=== PATIENT | male | born 1935 | race Caucasian/White ===

== ENCOUNTER 2016-07-03 12:12 | Observation (INO) | payer BC ==
[~2016-07-03] VITALS: Ht 162.6 cm; Wt 61.0 kg
[~2016-07-03 12:12] MED LIST: ASPI-664 PO; GABA100C PO; HYDR-3498 PO; LISI20TA11 PO
[2016-07-03 17:29] LABS: BASOPHILS % 0.3 % (0.0-2.0); EOSINOPHILS % 0.4 % (0.0-7.0); HEMATOCRIT 42.3 % (42.0-52.0); HEMOGLOBIN 14.5 g/dl (14.0-18.0); LYMPHOCYTES # 1.6 10^3/ul (0.8-2.9); LYMPHOCYTES % 22.9 % (15.0-51.0); MEAN CORPUSCULAR HEMOGLOBIN 32.1 pg (29.0-33.0); MEAN CORPUSCULAR HGB CONC 34.2 g/dl (32.0-37.0); MEAN CORPUSCULAR VOLUME 93.8 fl (82.0-101.0); MEAN PLATELET VOLUME 6.7 fl (7.4-10.4); MONOCYTE # 0.7 10^3/ul (0.3-0.9); MONOCYTES % 10.1 % (0.0-11.0); NEUTROPHIL # 4.7 10^3/ul (1.6-7.5); NEUTROPHILS % 66.3 % (39.0-77.0); PLATELET COUNT 318 10^3/UL (140-440); RED BLOOD COUNT 4.51 10^6/ul (4.70-6.10); RED CELL DISTRIBUTION WIDTH 12.6 % (11.5-14.5); UNCORRECTED WBC 7.1 10^3/ul (4.8-10.8); WHITE BLOOD COUNT 7.1 10^3/ul (4.8-10.8)
[2016-07-03 17:33] LABS: CONDITION 1
[2016-07-03 17:39] LABS: INR 0.92; PARTIAL THROMBOPLASTIN TIME 28.2 Sec (25.0-35.0); PROTIME 12.4 Sec (12.2-14.2)
[2016-07-03 17:42] LABS: ADD UMIC YES; CHLORIDE 83 mmol/L (97-110); URINE BILIRUBIN (Dip) NEGATIVE (NEGATIVE); URINE BLOOD (Dip) 1+ (NEGATIVE); URINE COLOR LT. YELLOW (YELLOW); URINE GLUCOSE (Dip) NEGATIVE (NEGATIVE); URINE KETONES (Dip) NEGATIVE (NEGATIVE); URINE LEUKOCYTE ESTERASE (Dip) NEGATIVE (NEGATIVE); URINE NITRITE (Dip) NEGATIVE (NEGATIVE); URINE TOTAL PROTEIN (Dip) NEGATIVE (NEGATIVE); URINE UROBILINOGEN (Dip) 0.2 E.U./dL (0.1-1.0)
[2016-07-03 17:43] LABS: POTASSIUM 3.4 mmol/L (3.5-5.1); SODIUM 122 mmol/L (135-144)
[2016-07-03 17:45] LABS: ANION GAP 14 (8-16); CARBON DIOXIDE 28 mmol/L (21-31); CREATININE 1.11 mg/dl (0.61-1.24)
[2016-07-03 17:46] LABS: ALANINE AMINOTRANSFERASE 25 IU/L (13-69); ALBUMIN/GLOBULIN RATIO 1.29; ALKALINE PHOSPHATASE 70 IU/L (42-121); ASPARTATE AMINO TRANSFERASE 23 IU/L (15-46); BILIRUBIN,INDIRECT 0.4 mg/dl (0-1.1); BILIRUBIN,TOTAL 0.4 mg/dl (0.2-1.3); BLOOD UREA NITROGEN 18 mg/dl (7-20); CALCIUM 8.8 mg/dl (8.4-10.2); GLUCOSE 128 mg/dl (70-220); TOTAL PROTEIN 7.1 g/dl (6.1-8.1)
[2016-07-03 17:57] LABS: URINE RBCS 0-2 /HPF (0)
[2016-07-03 18:14] LABS: TROPONIN-I < 0.012 ng/ml (0.00-0.12)
[2016-07-03] MEDS ORDERED: TRAM-40 PO (18:21)
[2016-07-03] MEDS ORDERED: RANI150T5 PO (18:21)
[2016-07-03] MEDS ORDERED: LORA10TA3 PO (18:22)
[2016-07-03] MEDS ORDERED: TEMA15CA PO (18:22)
[2016-07-03] MEDS ORDERED: LEVO50TA74 PO (18:22)
[2016-07-03] MEDS ORDERED: TAMS0.4C2 PO (18:23)
--- NOTE | 2016-07-03 18:35 | RADRPT ---
PROCEDURE: XR Chest AP portable CLINICAL INDICATION: Abdominal pain TECHNIQUE: An AP portable radiograph of the chest was submitted. COMPARISON: 07/11/2014 FINDINGS: Support Hardware: None Cardiovascular: The cardiovascular silhouette appears unremarkable, except for mild aortic tortuosit y. Lung Rivera: The lung rivera appear clear with no nodule, alveolar infiltrate, for a interstitial pr ominence evident. Pleural Spaces: No pneumothorax or pleural effusion is identified. Osseous Structures: The osseous structures appear intact. Soft Tissues: The soft tissues appear unremarkable. IMPRESSION: 1. Mild aortic tortuosity. 2. Otherwise, stable unremarkable portable chest. Physician Usama Date Time Electronically viewed and signed by Physician Usama on 07/03/2016 18:35 /
[2016-07-03] MEDS ORDERED: morphine 4 MG/ML VIAL IV STA (18:46)
[2016-07-03] MEDS ORDERED: ACETAMINOPHEN 325 MG TAB PO PRN (20:00)
[2016-07-03] MEDS ORDERED: ONDANSETRON 4 MG INJ IV PRN (20:00)
[2016-07-03 21:24] VITALS: PULSE 68
[2016-07-03 21:30] VITALS: Ht 162.6 cm; Wt 61.0 kg
[2016-07-03 21:52] VITALS: BP 147/78; PULSE 66; RESP 17
[2016-07-03 22:04] LABS: POTASSIUM,URINE RANDOM < 9.7 mmol/L (25-125)
[2016-07-04] VITALS (12 sets, daily range): BP systolic 99–165; BP diastolic 58–92; PULSE 64–123; RESP 16–20
[2016-07-04] MEDS ORDERED: ACETAMINOPHEN 325 MG TAB PO PRN
[2016-07-04] MEDS ORDERED: traMADol 50 MG TAB PO PRN (04:00)
[2016-07-04] MEDS: SOD CHLORIDE 0.9% 1,000 ML IV SCH ×2 (04:00→13:09)
[2016-07-04] MEDS ORDERED: ZOLPIDEM 5 MG TAB PO PRN (04:00)
[2016-07-04] MEDS ORDERED: hydrALAzine 20 MG INJ ONE (04:38)
[2016-07-04] MEDS ORDERED: hydrALAzine 20 MG INJ IV PRN (05:30)
[2016-07-04] MEDS ORDERED: hydrALAzine 20 MG INJ IV SCH (06:00)
[2016-07-04] MEDS: LISINOPRIL 20 MG TAB PO SCH (08:25)
[2016-07-04] MEDS: FAMOTIDINE 20 MG TAB PO SCH (08:25)
[2016-07-04] MEDS: LORATADINE 10 MG TAB PO SCH (08:25)
[2016-07-04] MEDS: HEPARIN 5,000 UNIT/0.5 ML SYG SC SCH (08:32)
[2016-07-04 10:18] LABS: BASOPHILS % 0.5 % (0.0-2.0); EOSINOPHILS % 0.4 % (0.0-7.0); HEMATOCRIT 43.3 % (42.0-52.0); HEMOGLOBIN 14.9 g/dl (14.0-18.0); LYMPHOCYTES # 1.6 10^3/ul (0.8-2.9); MEAN CORPUSCULAR HEMOGLOBIN 32.2 pg (29.0-33.0); MEAN CORPUSCULAR HGB CONC 34.5 g/dl (32.0-37.0); MEAN CORPUSCULAR VOLUME 93.5 fl (82.0-101.0); MONOCYTE # 0.8 10^3/ul (0.3-0.9); MONOCYTES % 14.7 % (0.0-11.0); NEUTROPHILS % 55.4 % (39.0-77.0); PLATELET COUNT 326 10^3/UL (140-440); RED BLOOD COUNT 4.63 10^6/ul (4.70-6.10); RED CELL DISTRIBUTION WIDTH 12.9 % (11.5-14.5); UNCORRECTED WBC 5.5 10^3/ul (4.8-10.8); WHITE BLOOD COUNT 5.5 10^3/ul (4.8-10.8)
[2016-07-04 10:24] LABS: CONDITION 1; POTASSIUM 3.8 mmol/L (3.5-5.1)
[2016-07-04 10:28] LABS: CALCIUM 8.9 mg/dl (8.4-10.2)
--- NOTE | 2016-07-04 11:35 | ERA ---
ER Documentation Chief Complaint Date/Time DATE: 07/04/16 TIME: 11:32 Chief Complaint SENT BY PMD FOR LOW SODIUM , ALSO C/O ABD PAIN HPI 80-year-old male with a history of hypertension and CKD presenting from his physician's office for a low sodium on his routine blood tests. Per patient he has chronic abdominal pain secondary to what they think is gastritis. That pain has not gotten any worse. However he has poor p.o. intake per his daughter. He denies any headache, confusion, dizziness, nausea, vomiting. No seizure-like activity recently. Urinating normally. No recent fevers, chills, abdominal pain, chest pain or shortness of breath. ROS All systems reviewed and are negative except as per history of present illness. Medications Home Meds Reported Medications Tamsulosin Hcl* (Tamsulosin Hcl*) 0.4 Mg Cap.er.24h, 0.4 MG PO DAILY, CAP 07/03/16 Loratadine* (Loratadine*) 10 Mg Tablet, 10 MG PO DAILY, #30 TAB 07/03/16 Levothyroxine Sodium* (Levothyroxine Sodium*) 50 Mcg Tablet, 50 MCG PO BEFORE BREAKFAST, #30 TAB 07/03/16 Temazepam* (Temazepam*) 15 Mg Capsule, 15 MG PO HS Y for INSOMNIA, CAP 07/03/16 Ranitidine Hcl* (Ranitidine Hcl*) 150 Mg Tablet, 150 MG PO Q12, #60 TAB 07/03/16 Tramadol Hcl* (Ultram*) 50 Mg Tablet, 50 MG PO DAILY Y for PAIN, TAB 07/03/16 Lisinopril* (Lisinopril*) 20 Mg Tablet, 20 MG PO DAILY, TAB 07/11/14 Discontinued Reported Medications Gabapentin* (Neurontin*) 100 Mg Capsule, 100 MG PO BID THEREAFTER, CAP 07/11/14 Discontinued Scripts Hydrocodone Bit-Acetaminophen* ([place]*) 5-325 Mg Tab, 1 TAB PO q6h for q6h, #20 TAB Prov:COMFORT DAVIS MD 07/12/14 Aspirin* (Aspirin* EC) 81 Mg Tablet.dr, 81 MG PO DAILY, #30 TAB Prov:COMFORT DAVIS MD 07/12/14 Allergies Allergies: Coded Allergies: No Known Drug Allergies (Verified Allergy, Unknown, 07/03/16) PMhx/Soc History of Surgery: Yes (CHOLESCYSTECTOMY) Anesthesia Reaction: No Hx Neurological Disorder: No Hx Respiratory Disorders: No Hx Cardiac Disorders: Yes (HTN) Hx Psychiatric Problems: No Hx Miscellaneous Medical Probl: Yes (ARTHRITIS BPH) Hx Alcohol Use: No Hx Substance Use: No Hx Tobacco Use: No Smoking Status: Never smoker FmHx Family History: No diabetes Physical Exam Vitals Vital Signs Date Time Temp Pulse Resp B/P Pulse Ox O2 Delivery O2 Flow Rate FiO2 07/03/16 18:46 66 16 134/74 99 Room Air 07/03/16 17:23 72 18 118/73 99 Room Air 07/03/16 12:17 98.5 82 18 126/70 97 Physical Exam Const: No apparent distress, laying comfortably in bed, nontoxic Head: Atraumatic Eyes: Normal Conjunctiva ENT: Normal External Ears, Nose and Mouth. Neck: Full range of motion. No meningismus. Resp: Clear to auscultation bilaterally Cardio: Regular rate and rhythm, no murmurs Abd: Soft, non tender, non distended. Normal bowel sounds Skin: No petechiae or rashes Back: No midline or flank tenderness Ext: No cyanosis, or edema Neur: Awake and alert and oriented 3, cranial nerves intact, strength and sensations intact in all 4 extremities Psych: Normal Mood and Affect Result Diagram: 07/04/16 0945 07/04/16 0945 Results 24 hrs Laboratory Tests Test 07/03/16 17:15 Activated Partial Thromboplast Time 28.2Sec Alanine Aminotransferase (ALT/SGPT) 25IU/L Albumin 4.0g/dl Albumin/Globulin Ratio 1.29 Alkaline Phosphatase 70IU/L Anion Gap 14 Aspartate Amino Transf (AST/SGOT) 23IU/L Basophils # 0.010^3/ul Basophils % 0.3% Blood Morphology Comment Blood Urea Nitrogen 18mg/dl Calcium Level 8.8mg/dl Carbon Dioxide Level 28mmol/L Chloride Level 83mmol/L Creatinine 1.11mg/dl Direct Bilirubin 0.00mg/dl Eosinophils # 0.010^3/ul Eosinophils % 0.4% Globulin 3.10g/dl Glucose Level 128mg/dl Hematocrit 42.3% Hemoglobin 14.5g/dl INR International Normalized Ratio 0.92 Indirect Bilirubin 0.4mg/dl Lipase 335U/L Lymphocytes # 1.610^3/ul Lymphocytes % 22.9% Mean Corpuscular Hemoglobin 32.1pg Mean Corpuscular Hemoglobin Concent 34.2g/dl Mean Corpuscular Volume 93.8fl Mean Platelet Volume 6.7fl Monocytes # 0.710^3/ul Monocytes % 10.1% Neutrophils # 4.710^3/ul Neutrophils % 66.3% Nucleated Red Blood Cells # 0.010^3/ul Nucleated Red Blood Cells % 0.0/100WBC Platelet Count 68641^3/UL Potassium Level 3.4mmol/L Prothrombin Time 12.4Sec Prothrombin Time Ratio 1.0 Red Blood Count 4.5110^6/ul Red Cell Distribution Width 12.6% Sodium Level 122mmol/L Total Bilirubin 0.4mg/dl Total Protein 7.1g/dl Troponin I < 0.012ng/ml Urine Bilirubin NEGATIVE Urine Clarity CLEAR Urine Color LT. YELLOW Urine Glucose NEGATIVE% Urine Hemoglobin 1+ Urine Ketones NEGATIVE Urine Leukocyte Esterase NEGATIVE Urine Microscopic RBC 0-2/HPF Urine Microscopic WBC NONE SEEN/HPF Urine Nitrite NEGATIVE Urine Random Potassium < 9.7mmol/L Urine Random Sodium < 13mmol/L Urine Specific [place] <=1.005 Urine Total Protein NEGATIVE Urine Urobilinogen 0.2 E.U./dL Urine pH 6.5 White Blood Count 7.110^3/ul Current Medications Medications (Trade) Dose Ordered Sig/Junaid Route PRN Reason Start Time Stop Time Status Last Admin Dose Admin Morphine Sulfate (morphine) 4 mg ONCE STAT IV 07/03/16 18:46 07/03/16 18:47 DC 07/03/16 18:54 Procedures/MDM EKG: Rate/Rhythm: Normal sinus rhythm with first-degree AV block QRS, ST, T-waves: No changes consistent w/ acute ischemia Impression: No evidence of ischemia or arrhythmia Patient is presenting with asymptomatic hyponatremia. I repeated his blood work and his sodium is even lower today at 122. He has no evidence of fluid overload so it is probably euvolemic versus hypovolemic hyponatremia. Urine electrolytes were ordered. Patient is hemodynamically stable. I will admit him for further workup. Accepting Care Team: Current data and ongoing care discussed at time of admission. Primary: Stacie Consulting: none Outstanding Data: none Departure Diagnosis: Primary Impression: Hyponatremia Condition: Serious EKMEKDEJONAN,NELLIE R. MD Jul 04, 2016 11:35
--- NOTE | 2016-07-04 14:24 | PN ---
Date/Time of Note Date/Time of Note DATE: 07/04/16 TIME: 14:20 Assessment/Plan VTE Prophylaxis VTE Prophylaxis Intervention: SCD's Lines/Catheters IV [facility]ter [facility]from [facility] Peripheral IV Assessment/Plan Chief Complaint/Hosp Course Assessment and plan 1. Hyponatremia. Improving at present. Continue on IV fluids. Patient's test lead application testing Dr. Nicolas notified. 2. Mild pancreatitis. Denies any abdominal pain at this time. We'll follow-up on lipase level. Continue IV hydration 3. BPH. Continue on Flomax 4. History of hypertension. We'll provide with antihypertensives for systolic greater than 160 Disposition and plan: Await for clinical improvement of hyponatremia. Draw Tender notified. Discharge when medically stable Discussed plan of care with Dr. Koroma Problems: Subjective 24 Hr Interval Summary Free Text/Dictation Comfortable at present. No apparent distress Exam/Review of Systems Vital Signs Vitals Vital Signs Date Time Temp Pulse Resp B/P Pulse Ox O2 Delivery O2 Flow Rate FiO2 07/04/16 12:26 106 07/04/16 12:18 98.9 18 158/92 99 07/03/16 21:52 Room Air Exam General: No acute signs or symptoms of distress Eyes: pupils equal round, Anicteric sclera Neck: Supple nontender, no JVD Cardiac: S1, S2 auscultated, regular rhythm and rate Pulmonary: No coarse rhonchi or breathing auscultated GI: Abdomen soft nontender nondistended, bowel sounds active Extremities: No edema bilateral lower extremities Skin: Clean dry and intact Neurologic: Alert to person place and time and situation Results Result Diagram: 07/04/16 0945 07/04/16 0945 Results 24 hrs Laboratory Tests Test 07/03/16 17:15 07/04/16 09:45 Activated Partial Thromboplast Time 28.2 Alanine Aminotransferase (ALT/SGPT) 25 Albumin 4.0 Albumin/Globulin Ratio 1.29 Alkaline Phosphatase 70 Anion Gap 14 15 Aspartate Amino Transf (AST/SGOT) 23 Basophils # 0.0 0.0 Basophils % 0.3 0.5 Blood Morphology Comment Blood Urea Nitrogen 18 19 Calcium Level 8.8 8.9 Carbon Dioxide Level 28 27 Chloride Level 83 L 91 L Creatinine 1.11 1.00 Direct Bilirubin 0.00 Eosinophils # 0.0 0.0 Eosinophils % 0.4 0.4 Globulin 3.10 Glucose Level 128 95 Hematocrit 42.3 43.3 Hemoglobin 14.5 14.9 INR International Normalized Ratio 0.92 Indirect Bilirubin 0.4 Lipase 335 H Lymphocytes # 1.6 1.6 Lymphocytes % 22.9 29.0 Mean Corpuscular Hemoglobin 32.1 32.2 Mean Corpuscular Hemoglobin Concent 34.2 34.5 Mean Corpuscular Volume 93.8 93.5 Mean Platelet Volume 6.7 L 7.0 L Monocytes # 0.7 0.8 Monocytes % 10.1 14.7 H Neutrophils # 4.7 3.0 Neutrophils % 66.3 55.4 Nucleated Red Blood Cells # 0.0 0.0 Nucleated Red Blood Cells % 0.0 0.0 Platelet Count 318 # 326 Potassium Level 3.4 L 3.8 Prothrombin Time 12.4 Prothrombin Time Ratio 1.0 Red Blood Count 4.51 L 4.63 L Red Cell Distribution Width 12.6 12.9 Sodium Level 122 L 129 L Total Bilirubin 0.4 Total Protein 7.1 Troponin I < 0.012 Urine Bilirubin NEGATIVE Urine Clarity CLEAR Urine Color LT. YELLOW Urine Glucose NEGATIVE Urine Hemoglobin 1+ H Urine Ketones NEGATIVE Urine Leukocyte Esterase NEGATIVE Urine Microscopic RBC 0-2 Urine Microscopic WBC NONE SEEN Urine Nitrite NEGATIVE Urine Random Potassium < 9.7 L Urine Random Sodium < 13 L Urine Specific [place] <=1.005 L Urine Total Protein NEGATIVE Urine Urobilinogen 0.2 E.U./dL Urine pH 6.5 White Blood Count 7.1 # 5.5 # Medications Medications Current Medications Acetaminophen (Tylenol Tab) 650 mg Q4H PRN PO PAIN AND OR ELEVATED TEMP; Start 07/04/16 at 00:00 Lisinopril (Zestril) 20 mg DAILY PO Last administered on 07/04/16 08:25; Admin Dose 20 MG; Start 07/04/16 at 09:00 Famotidine (Pepcid) 20 mg DAILY PO Last administered on 07/04/16 08:25; Admin Dose 20 MG; Start 07/04/16 at 09:00 Tramadol HCl (Ultram) 50 mg Q6H PRN PO pain; Start 07/04/16 at 04:00 Loratadine (Claritin) 10 mg DAILY PO Last administered on 07/04/16 08:25; Admin Dose 10 MG; Start 07/04/16 at 09:00 Tamsulosin HCl (Flomax) 0.4 mg HS PO ; Start 07/04/16 at 21:00 Heparin Sodium (Porcine) 5000 unit 5,000 unit DAILY SC Last administered on 07/04 08:32; Admin Dose 5,000 UNIT; Start 07/04/16 at 09:00 Sodium Chloride (NS) 1,000 ml @ 100 mls/hr Q10H IV Last administered on 13:09; Admin Dose 100 MLS/HR; Start 07/04/16 at 04:00 Hydralazine HCl (Apresoline) 10 mg Q6H PRN IV ELEVATED BLOOD PRESSURE Last administered on 07/04/16 05:48; Admin Dose 10 MG; Start 07/04/16 at 05:30 Miscellaneous Information (*Order Clarification Bulletin) MEDICATION REQUIRES CLARIFICATI... Q8H XX ; Start 07/04/16 at 05:30 LULA VICTORIA Jul 04, 2016 14:24
[2016-07-04 17:01] LABS: POTASSIUM,URINE RANDOM < 9.7 mmol/L (25-125)
[2016-07-04] MEDS ORDERED: TAMSULOSIN (SR) 0.4 MG CAP PO SCH (21:00)
--- NOTE | 2016-07-04 23:40 | HP ---
Date/Time of Note Date/Time of Note DATE: 07/04/16 TIME: 23:40 Assessment/Plan Lines/Catheters IV Catheter Type (from Nrsg): Peripheral IV Assessment/Plan Assessment/Plan IMPRESSION 1. Hyponatremia 2. HTN: BP within goal 3. Hx of BPH with elevated PSA PLAN Cont IVF Awaiting nephrology Evaluation Cont home meds with adjustment as needed f/u with urology as outpt for hx of elevated PSA HPI/ROS Admit Date/Time Admit Date/Time Jul 03, 2016 at 19:40 Hx of Present Illness 80-year-old male with a history of hypertension and CKD presenting from his physician's office for a low sodium on his routine blood tests. Per patient he has chronic abdominal pain secondary to what they think is gastritis. That pain has not gotten any worse. However he has poor p.o. intake per his daughter. He denies any headache, confusion, dizziness, nausea, vomiting. No seizure-like activity recently. Urinating normally. No recent fevers, chills, abdominal pain, chest pain or shortness of breath. PMH/Family/Social Social History Smoking Status: Never smoker Exam/Review of Systems Vital Signs Vitals Vital Signs Date Time Temp Pulse Resp B/P Pulse Ox O2 Delivery O2 Flow Rate FiO2 07/04/16 20:34 73 07/04/16 15:56 98.2 19 126/66 96 07/03/16 21:52 Room Air Exam Constitutional: other (sleepy, but arousable. no distress. looks si=omehow weak ) Head: atraumatic, normocephalic Eyes: EOMI, PERRL Respiratory: clear to auscultation, normal air movement Cardiovascular: nl pulses, regular rate and rhythm Gastrointestinal: non-tender, soft Extremities: normal pulses Labs Result Diagram: 07/04/1645 07/04/1645 Medications Medications Current Medications Acetaminophen (Tylenol Tab) 650 mg Q4H PRN PO PAIN AND OR ELEVATED TEMP; Start 07/04/16 at 00:00 Lisinopril (Zestril) 20 mg DAILY PO Last administered on 07/04/16 08:25; Admin Dose 20 MG; Start 07/04/16 at 09:00 Famotidine (Pepcid) 20 mg DAILY PO Last administered on 07/04/16 08:25; Admin Dose 20 MG; Start 07/04/16 at 09:00 Tramadol HCl (Ultram) 50 mg Q6H PRN PO pain Last administered on 07/04/16 22:14 ; Admin Dose 50 MG; Start 07/04/16 at 04:00 Loratadine (Claritin) 10 mg DAILY PO Last administered on 07/04/16 08:25; Admin Dose 10 MG; Start 07/04/16 at 09:00 Tamsulosin HCl (Flomax) 0.4 mg HS PO Last administered on 07/04/16 22:10; Admin Dose 0.4 MG; Start 07/04/16 at 21:00 Heparin Sodium (Porcine) 5000 unit 5,000 unit DAILY SC Last administered on 07/04 08:32; Admin Dose 5,000 UNIT; Start 07/04/16 at 09:00 Sodium Chloride (NS) 1,000 ml @ 100 mls/hr Q10H IV Last administered on 13:09; Admin Dose 100 MLS/HR; Start 07/04/16 at 04:00 Hydralazine HCl (Apresoline) 10 mg Q6H PRN IV ELEVATED BLOOD PRESSURE Last administered on 07/04/16 05:48; Admin Dose 10 MG; Start 07/04/16 at 05:30 Miscellaneous Information (*Order Clarification Bulletin) MEDICATION REQUIRES CLARIFICATI... Q8H XX ; Start 07/04/16 at 05:30 FRANCA MAYES MD Jul 04, 2016 23:40
[2016-07-05] VITALS (10 sets, daily range): BP systolic 118–144; BP diastolic 72–77; PULSE 65–88; RESP 18–20
[2016-07-05] MEDS: SOD CHLORIDE 0.9% 1,000 ML IV SCH ×2 (00:23→09:38)
[2016-07-05 06:17] LABS: BASOPHILS % 0.5 % (0.0-2.0); EOSINOPHILS # 0.1 10^3/ul (0.0-0.5); EOSINOPHILS % 2.5 % (0.0-7.0); HEMATOCRIT 38.1 % (42.0-52.0); HEMOGLOBIN 13.3 g/dl (14.0-18.0); LYMPHOCYTES # 1.5 10^3/ul (0.8-2.9); MEAN CORPUSCULAR HEMOGLOBIN 32.4 pg (29.0-33.0); MEAN CORPUSCULAR HGB CONC 34.8 g/dl (32.0-37.0); MEAN CORPUSCULAR VOLUME 93.2 fl (82.0-101.0); MEAN PLATELET VOLUME 6.5 fl (7.4-10.4); MONOCYTE # 0.7 10^3/ul (0.3-0.9); MONOCYTES % 17.8 % (0.0-11.0); NEUTROPHIL # 1.7 10^3/ul (1.6-7.5); NEUTROPHILS % 42.2 % (39.0-77.0); PLATELET COUNT 290 10^3/UL (140-440); RED BLOOD COUNT 4.09 10^6/ul (4.70-6.10); UNCORRECTED WBC 4.1 10^3/ul (4.8-10.8); WHITE BLOOD COUNT 4.1 10^3/ul (4.8-10.8)
[2016-07-05 06:25] LABS: POTASSIUM 3.4 mmol/L (3.5-5.1)
[2016-07-05 06:28] LABS: CREATININE 1.08 mg/dl (0.61-1.24)
[2016-07-05 06:29] LABS: CALCIUM 7.9 mg/dl (8.4-10.2)
[2016-07-05 06:48] LABS: CONDITION 1; LH ANALYZER COMMENTS 1
[2016-07-05] MEDS: FAMOTIDINE 20 MG TAB PO SCH (08:15)
[2016-07-05] MEDS: LORATADINE 10 MG TAB PO SCH (08:15)
[2016-07-05] MEDS: LISINOPRIL 20 MG TAB PO SCH (08:16)
[2016-07-05] MEDS: HEPARIN 5,000 UNIT/0.5 ML SYG SC SCH (08:23)
--- NOTE | 2016-07-05 09:48 | CONS ---
Date/Time of Note Date/Time of Note DATE: 07/05/16 TIME: 09:44 Assessment/Plan Assessment/Plan Chief Complaint/Hosp Course - HYPONATREMIA - HYPERTENSION - BPH PLAN: ? Hypovolemic Hyponatremia Improved with IVF Follow up with U [facility] & U Sodium Follow up with TSH He had an appointment for Urology as out patient for high PSA Replace potassium to keep ~ 4 THANK YOU V. MUCH Problems: Consultation Date/Type/Reason Admit Date/Time Jul 03, 2016 at 19:40 Date of Consultation: Jul 05, 2016 Type of Consultation: NEPHROLOGY Reason for Consultation Hyponatremia Constitutional: improved Eyes: no complaints ENT: no complaints Respiratory: no complaints Cardiovascular: no complaints Gastrointestinal: no complaints Genitourinary: no complaints Musculoskeletal: no complaints Skin: no complaints Past Medical History HYPERTENSION, CKD, BPH ( Hx of high PSA ) Past Surgical History Past Surgical Hx: no surgical history Family History Significant Family History: no pertinent family hx Social History Alcohol Use: none Smoking Status: Never smoker Drug Use: none Exam/Review of Systems Vital Signs Vitals Vital Signs Date Time Temp Pulse Resp B/P Pulse Ox O2 Delivery O2 Flow Rate FiO2 07/05/16 08:28 65 07/05/16 07:00 97.7 18 144/73 97 07/05/16 04:00 Room Air Intake and Output 07/04/16 07/04/16 07/05/16 15:00 23:00 07:00 Intake Total 400 ml 400 ml Balance 400 ml 400 ml Exam Constitutional: alert Psych: no complaints Head: normocephalic Eyes: nl conjunctiva ENMT: nl external ears & nose Neck: supple Respiratory: crackles/rales Cardiovascular: regular rate and rhythm, systolic murmur Gastrointestinal: soft Results Result Diagram: 07/05/16 0500 07/05/16 0550 Results 24 hrs Laboratory Tests Test 07/04/16 09:45 07/04/16 12:20 07/05/16 05:00 07/05/16 05:50 Anion Gap 15 12 Basophils # 0.0 0.0 Basophils % 0.5 0.5 Blood Morphology Comment Blood Urea Nitrogen 19 18 Calcium Level 8.9 7.9 L Carbon Dioxide Level 27 26 Chloride Level 91 L 96 L Creatinine 1.00 1.08 Eosinophils # 0.0 0.1 Eosinophils % 0.4 2.5 Glucose Level 95 87 Hematocrit 43.3 38.1 L Hemoglobin 14.9 13.3 L Lymphocytes # 1.6 1.5 Lymphocytes % 29.0 37.0 Mean Corpuscular Hemoglobin 32.2 32.4 Mean Corpuscular Hemoglobin Concent 34.5 34.8 Mean Corpuscular Volume 93.5 93.2 Mean Platelet Volume 7.0 L 6.5 L Monocytes # 0.8 0.7 Monocytes % 14.7 H 17.8 H Neutrophils # 3.0 1.7 Neutrophils % 55.4 42.2 Nucleated Red Blood Cells # 0.0 0.0 Nucleated Red Blood Cells % 0.0 0.0 Platelet Count 326 290 Potassium Level 3.8 3.4 L Red Blood Count 4.63 L 4.09 L Red Cell Distribution Width 12.9 13.0 Sodium Level 129 L 131 L White Blood Count 5.5 # 4.1 #L Urine Random Potassium < 9.7 L Urine Random Sodium 60 Medications Medications Current Medications Acetaminophen (Tylenol Tab) 650 mg Q4H PRN PO PAIN AND OR ELEVATED TEMP; Start 07/04/16 at 00:00 Lisinopril (Zestril) 20 mg DAILY PO Last administered on 07/05/16 08:16; Admin Dose 20 MG; Start 07/04/16 at 09:00 Famotidine (Pepcid) 20 mg DAILY PO Last administered on 07/05/16 08:15; Admin Dose 20 MG; Start 07/04/16 at 09:00 Tramadol HCl (Ultram) 50 mg Q6H PRN PO pain Last administered on 07/04/16 22:14 ; Admin Dose 50 MG; Start 07/04/16 at 04:00 Loratadine (Claritin) 10 mg DAILY PO Last administered on 07/05/16 08:15; Admin Dose 10 MG; Start 07/04/16 at 09:00 Tamsulosin HCl (Flomax) 0.4 mg HS PO Last administered on 07/04/16 22:10; Admin Dose 0.4 MG; Start 07/04/16 at 21:00 Heparin Sodium (Porcine) 5000 unit 5,000 unit DAILY SC Last administered on 07/05 08:23; Admin Dose 5,000 UNIT; Start 07/04/16 at 09:00 Sodium Chloride (NS) 1,000 ml @ 100 mls/hr Q10H IV Last administered on 09:38; Admin Dose 100 MLS/HR; Start 07/04/16 at 04:00 Hydralazine HCl (Apresoline) 10 mg Q6H PRN IV ELEVATED BLOOD PRESSURE Last administered on 07/04/16 05:48; Admin Dose 10 MG; Start 07/04/16 at 05:30 Miscellaneous Information (*Order Clarification Bulletin) MEDICATION REQUIRES CLARIFICATI... Q8H XX ; Start 07/04/16 at 05:30 VICTORINA WATERMAN MD Jul 05, 2016 09:48
[2016-07-05] MEDS ORDERED: POTASSIUM CHLORIDE (SR) 20 MEQ TAB PO STA (09:49)
[2016-07-05 11:46] LABS: T3 UPTAKE 40.1 % (23.5-40.5)
[2016-07-05] MEDS ORDERED: LISI20TA11 PO (14:58)
[2016-07-05] MEDS ORDERED: LEVO50TA74 PO (14:58)
[2016-07-05] MEDS ORDERED: TAMS0.4C2 PO (14:58)
--- NOTE | 2016-07-05 15:00 | PDOCDIS ---
Discharge Instructions DIAGNOSIS Discharge Diagnosis: 1. Hyponatremia 2. Hypertension 3. BPH CONDITION Patient Condition: Stable HOME CARE INSTRUCTIONS: Diet Instructions: Regular FOLLOW UP/APPOINTMENTS Appointments 1. Follow up with Dr. Taylor Nicolas in one week 2. Follow up with your urologist in one week LULA VICTORIA Jul 05, 2016 15:00
--- NOTE | 2016-07-05 15:07 | DS ---
Date/Time of Note Date/Time of Note DATE: 07/05/16 TIME: 15:04 Discharge Summary Admission/Discharge Info Admit Date/Time Jul 03, 2016 at 19:40 Discharge Date/Time Final Diagnosis CONDITION Patient Condition: Stable HOME CARE INSTRUCTIONS: Diet Instructions: Regular FOLLOW UP/APPOINTMENTS Appointments 1. Follow up with Dr. Taylor Nicolas in one week 2. Follow up with your urologist in one week Patient Condition: Stable Consults 1. Dr. Taylor Nicolas Hospital Course This is a 80-year-old male with history of hypertension, CKD, who was brought to [facility] from his physician's office (Dr. Taylor Nicolas) due to incidental finding of low-sodium per laboratory draw. Patient has had poor oral intake per family. He denied any chest pain headache dizziness or nausea or vomiting. He did report having regular urination. He does have history of BPH however, for which he did state he was scheduled for urological surgery this month. Patient did have blood work drawn that did show sodium as well as 122 however he was asymptomatic. He was provided with IV hydration and he was again seen by his retail pharmacy merchandiser. He also did have incidental finding of elevated lipase at 335 however he denied any abdominal pain. Was able to tolerate oral diet well. During his course of stay did improve. His sodium level did continue to rise. He was seen by retail pharmacy merchandiser and cleared for discharge with follow-up as outpatient. He was otherwise optimized medically. He was continued with his BPH medication for his BPH. His blood pressure did remain stable. The plan of care was discussed with patient and family and patient's family did verbalize understanding. On the day of discharge patient was in stable condition Discussed plan of care with Dr Scherer Disposition: Home Dishes process time is 40 minutes. Home Meds Active Scripts Tamsulosin Hcl* (Tamsulosin Hcl*) 0.4 Mg Cap.er.24h, 0.4 MG PO DAILY for 30 Days , CAP Prov:LULA VICTORIA 07/05/16 Levothyroxine Sodium* (Levothyroxine Sodium*) 50 Mcg Tablet, 50 MCG PO BEFORE BREAKFAST, #30 TAB Prov:REGIDORLULA 07/05/16 Lisinopril* (Lisinopril*) 20 Mg Tablet, 20 MG PO DAILY for 30 Days, TAB Prov:REGLULA RAIN 07/05/16 Reported Medications Loratadine* (Loratadine*) 10 Mg Tablet, 10 MG PO DAILY, #30 TAB 07/03/16 Temazepam* (Temazepam*) 15 Mg Capsule, 15 MG PO HS Y for INSOMNIA, CAP 07/03/16 Ranitidine Hcl* (Ranitidine Hcl*) 150 Mg Tablet, 150 MG PO Q12, #60 TAB 07/03/16 Tramadol Hcl* (Ultram*) 50 Mg Tablet, 50 MG PO DAILY Y for PAIN, TAB 07/03/16 Discontinued Reported Medications Gabapentin* (Neurontin*) 100 Mg Capsule, 100 MG PO BID THEREAFTER, CAP 07/11/14 Discontinued Scripts Hydrocodone Bit-Acetaminophen* ([place]*) 5-325 Mg Tab, 1 TAB PO q6h for q6h, #20 TAB Prov:COMFORT DAVIS MD 07/12/14 Aspirin* (Aspirin* EC) 81 Mg Tablet.dr 81 MG PO DAILY, #30 TAB Prov:COMFORT DAVIS MD 07/12/14 Follow-up Plan CONDITION Patient Condition: Stable HOME CARE INSTRUCTIONS: Diet Instructions: Regular FOLLOW UP/APPOINTMENTS Appointments 1. Follow up with Dr. Taylor Nicolas in one week 2. Follow up with your urologist in one week Pending Labs Laboratory Tests Test 07/05/16 05:00 07/05/16 05:50 Basophils # 0.010^3/ul (0.0-0.1) Basophils % 0.5% (0.0-2.0) Blood Morphology Comment Eosinophils # 0.110^3/ul (0.0-0.5) Eosinophils % 2.5% (0.0-7.0) Hematocrit 38.1% (42.0-52.0) Hemoglobin 13.3g/dl (14.0-18.0) Lymphocytes # 1.510^3/ul (0.8-2.9) Lymphocytes % 37.0% (15.0-51.0) Mean Corpuscular Hemoglobin 32.4pg (29.0-33.0) Mean Corpuscular Hemoglobin Concent 34.8g/dl (32.0-37.0) Mean Corpuscular Volume 93.2fl (82.0-101.0) Mean Platelet Volume 6.5fl (7.4-10.4) Monocytes # 0.710^3/ul (0.3-0.9) Monocytes % 17.8% (0.0-11.0) Neutrophils # 1.710^3/ul (1.6-7.5) Neutrophils % 42.2% (39.0-77.0) Nucleated Red Blood Cells # 0.010^3/ul (0.0-0.0) Nucleated Red Blood Cells % 0.0/100WBC (0.0-0.0) Platelet Count 23687^3/UL (140-440) Red Blood Count 4.0910^6/ul (4.70-6.10) Red Cell Distribution Width 13.0% (11.5-14.5) White Blood Count 4.110^3/ul (4.8-10.8) Anion Gap 12 (8-16) Blood Urea Nitrogen 18mg/dl (7-20) Calcium Level 7.9mg/dl (8.4-10.2) Carbon Dioxide Level 26mmol/L (21-31) Chloride Level 96mmol/L (97-110) Creatinine 1.08mg/dl (0.61-1.24) Free Thyroxine Index 2.49ug/ml (0.65-3.89) Glucose Level 87mg/dl (70-220) Potassium Level 3.4mmol/L (3.5-5.1) Random Cortisol 9.5ug/dl Sodium Level 131mmol/L (135-144) Thyroxine (T4) 6.2ug/dl (5.5-11.0) Triiodothyronine (T3) Uptake 40.1% (23.5-40.5) LULA VICTORIA Jul 05, 2016 15:07
== END 2016-07-05 18:13 | disposition home or self-care (01) ==
LOC: E/R 12:12 → MS4 19:40
PROVIDERS: ADMIT Internal Medicine; ATTEND Internal Medicine
DX: E87.1 Hypo-osmolality and hyponatremia (principal); N40.0 Benign prostatic hyperplasia without lower urinary tract symptoms; I12.9 Hypertensive chronic kidney disease with stage 1 through stage 4 chronic kidney disease, or unspecified chronic kidney disease; N18.9 Chronic kidney disease, unspecified
CPT/HCPCS: 36415; 71010; 80048; 80053; 81001; 82436; 82533; 83690; 84133; 84300; 84436; 84479; 84484; 85025; 85610; 85730; 93005; 96372; 96374; J0360; J1644; J2270; J7030; Z7500; Z7502; Z7610; 81003; G0378